=== PATIENT | female | born 1970 | race Two or more races ===

== ENCOUNTER 2020-04-07 06:05 | Day surgery (SDC) | payer OTHER ==
[~2020-04-07 06:05] MED LIST: MULTIVITAMINS1 EAC9 PO
== END 2020-04-07 15:50 | disposition home or self-care (01) ==
LOC: CIR.AMB 06:05 → ADM 08:45 → CIR.AMB 08:45
PROVIDERS: ATTEND Orthopaedic Surgery Hand Surgery
DX: M65.841 Other synovitis and tenosynovitis, right hand (principal)

== ENCOUNTER 2023-11-08 13:23 | Emergency (ER) | payer OTHER ==
[~2023-11-08] VITALS: Ht 170.2 cm; Wt 56.7 kg
[2023-11-08] MEDS ORDERED: IPRATROPIUM BRO30 ML NS (13:35)
[2023-11-08] MEDS ORDERED: ALLEGRA ALLERGY60 MG (13:36)
== END 2023-11-08 18:57 | disposition home or self-care (01) ==
LOC: ER 13:23
DX: U07.1 COVID-19 (principal); J32.9 Chronic sinusitis, unspecified; Z87.09 Personal history of other diseases of the respiratory system

== ENCOUNTER 2024-01-14 13:46 | Emergency (ER) | payer OTHER ==
[~2024-01-14] VITALS: Ht 170.2 cm; Wt 61.2 kg
[~2024-01-14 13:46] MED LIST changes: +ALLEGRA ALLERGY60 MG; +IPRATROPIUM BRO30 ML NS
[2024-01-14] MEDS ORDERED: KETOROLAC TROMETHAMINE 60 MG VIAL IM STA (17:31)
[2024-01-14] MEDS ORDERED: CEFTRIAXONE SODIUM 1,000 MG VIAL IM STA (17:31)
== END 2024-01-14 18:06 | disposition home or self-care (01) ==
LOC: ER 13:46
DX: J06.9 Acute upper respiratory infection, unspecified (principal)

== ENCOUNTER → 2025-03-19 | Emergency (ER) | payer OTHER ==
[~2025-03-19] VITALS: Ht 170.2 cm; Wt 56.7 kg
[~2025-03-19] MED LIST changes: +KETOROLAC TROMETHAMINE 30 MG VIAL IM ONE; +KETOROLAC TROMETHAMINE 30 MG VIAL ONE
== END | disposition home or self-care (01) ==
LOC: ER 15:21
DX: G89.11 Acute pain due to trauma (principal); M79.671 Pain in right foot

== ENCOUNTER 2025-08-26 10:10 | Emergency (ER) | payer OTHER ==
[~2025-08-26] VITALS: Ht 170.2 cm; Wt 57.2 kg
[~2025-08-26 10:10] MED LIST changes: -KETOROLAC TROMETHAMINE 30 MG VIAL IM ONE; -KETOROLAC TROMETHAMINE 30 MG VIAL ONE
[2025-08-26 11:49] VITALS: BP 136/88; O2SAT 96
[2025-08-26] MEDS ORDERED: 0.9 % SODIUM CHLORIDE 1,000 ML IV SCH (12:00)
[2025-08-26] MEDS ORDERED: levoFLOXacin IN DEXTROSE 5 % 500MG/100ML PIGGYBAG IV ONE ×2 (12:00→13:14)
[2025-08-26] MEDS ORDERED: KETOROLAC TROMETHAMINE 30 MG VIAL IV ONE (12:00)
[2025-08-26] MEDS ORDERED: CEFTRIAXONE SODIUM 2,000 MG VIAL IV ONE (12:00)
[2025-08-26] MEDS ORDERED: CEFTRIAXONE SODIUM 2,000 MG VIAL ONE (13:14)
[2025-08-26] MEDS ORDERED: KETOROLAC TROMETHAMINE 30 MG VIAL ONE (13:14)
[2025-08-26 14:01] LABS: BASO % 0.8 % (0.1-1.2); EOS # 0.57 (0.04-0.54); EOS % 4.8 % (0.7-7.0); LYMPH # 2.54 (1.18-3.74); LYMPH % 21.2 % (19.3-53.1); MEAN PLATELET VOLUME 9.40 fl (9.4-12.4); MONO # 0.85 (0.24-0.82); MONO % 7.1 % (4.7-12.5); NEUT # 7.91 (1.56-6.13); NEUT % 65.8 % (34.0-71.1); RED CELL DISTRIBUTION WIDTH 12.4 % (11.6-14.4)
[2025-08-26 14:07] LABS: ERYTHROCYTE SEDIMENTATION RATE 13 mm/hr (0-30)
[2025-08-26 14:28] LABS: ALT/SGPT 15.0 U/L (12-78); AST/SGOT 13.0 U/L (15-37); BILIRUBIN TOTAL 0.58 mg/dL (0.3-1.2); BUN CREA RATIO 15.0 (7.0-25.0); CREATININE SERUM 0.74 mg/dL (0.55-1.02); GFR 82.41; GLOBULINA 4.5 G/DL (2.4-3.5); GLUCOSE FASTING 89.0 mg/dL (65-100); OSMOLALITY SERUM 282.0 MOSM/KG (275-295)
== END 2025-08-26 17:38 | disposition home or self-care (01) ==
LOC: ER 10:10
PROVIDERS: General Practice
DX: R51.9 Headache, unspecified (principal)